=== PATIENT | female | born 1935 | race African-American/Black ===

== ENCOUNTER 2017-03-01 09:29 | Emergency (ER) | payer MEDICARE, MEDICAID ==
[~2017-03-01] VITALS: Ht 152.4 cm; Wt 54.0 kg
[2017-03-01] MEDS ORDERED: SIMV20TA6 PO (09:52)
[2017-03-01] MEDS ORDERED: DONE5TAB33 PO (09:52)
[2017-03-01] MEDS ORDERED: AMLO10TA80 PO (09:52)
[2017-03-01 13:08] VITALS: BP 159/82
== END 2017-03-01 14:11 | disposition home or self-care (01) ==
LOC: ER 12:40
DX: B34.9 Viral infection, unspecified (principal); I10 Essential (primary) hypertension; G30.9 Alzheimer's disease, unspecified; F02.80 Dementia in other diseases classified elsewhere, unspecified severity, without behavioral disturbance, psychotic disturbance, mood disturbance, and anxiety; E78.00 Pure hypercholesterolemia, unspecified; F17.200 Nicotine dependence, unspecified, uncomplicated
CPT/HCPCS: 71045; 87804; 99285

== ENCOUNTER 2020-10-29 20:30 | Inpatient (IN) | payer MEDICARE, MEDICAID ==
[~2020-10-29] VITALS: Ht 157.5 cm; Wt 46.7 kg
[~2020-10-29 20:30] MED LIST: AMLO10TA80 PO; DONE5TAB33 PO; SIMV-43 PO
[2020-10-29 22:49] LABS: CHLORIDE 106 mEq/L (98-107)
[2020-10-29 22:51] LABS: BASOPHILS % 0.3 % (0.0-2.0); EOSINOPHILS % 1.7 % (0.0-5.0); HEMATOCRIT. 37.9 % (36.0-48.0); HEMOGLOBIN. 12.9 g/dL (12.0-16.0); LYMPHOCYTES % 25.1 % (20.0-50.0); MEAN CORPUSCULAR HEMOGLOBIN 30.9 pg (28.0-32.0); MEAN CORPUSCULAR VOLUME 90.5 fL (81.0-99.0); MEAN PLATELET VOLUME 7.9 fl (7.4-10.4); MONOCYTES % 10.7 % (2.0-8.0); NEUTROPHILS % 62.2 % (40.0-76.0); PLATELET 208 x1000/uL (130-400); RED BLOOD CELL COUNT 4.19 mill/uL (4.2-5.4); RED CELL DISTRIBUTION WIDTH 13.6 % (11.6-14.6)
[2020-10-29] MEDS ORDERED: SODIUM CHLORIDE 0.9% 1,000 ML IV ONE (23:15)
[2020-10-29 23:34] LABS: CLARITY URINE CLOUDY (CLEAR); COLOR URINE YELLOW (YELLOW); KETONES URINE NEGATIVE (NEGATIVE); LEUKOCYTE ESTERASE URINE TRACE (NEGATIVE); NITRITE URINE POSITIVE (NEGATIVE); OCCULT BLOOD URINE TRACE (NEGATIVE); PROTEIN URINE NEGATIVE (NEGATIVE); SPECIFIC GRAVITY URINE 1.008 (1.005-1.030); UROBILINOGEN URINE 0.2 E.U./dL (0.2-1.0)
[2020-10-30] MEDS ORDERED: OLANZAPINE 10 MG/VIAL IM ONE
[2020-10-30] MEDS ORDERED: CEFTRIAXONE 1 G PREMIX 50 ML IV SCH ×2 (01:45→09:45)
[2020-10-30] MEDS: DONEPEZIL HCL 5MG TABLET PO SCH (12:09)
[2020-10-30 16:00] VITALS: BP 167/91
[2020-10-30] MEDS: ENOXAPARIN 30MG/0.3ML SYR SUBCUT SCH (16:38)
[2020-10-30] MEDS: AMLODIPINE 10MG TABLET PO SCH (16:38)
[2020-10-30 16:53] VITALS: BP 167/91
[2020-10-30 20:00] VITALS: BP 147/88
[2020-10-30] MEDS: CEFTRIAXONE 1,000 MG in DEXTROSE 5% WATER 50 ML IV SCH (22:14)
[2020-10-30] MEDS: LORAZEPAM 2MG/ML CPJ IV PRN (22:56)
[2020-10-31] VITALS (7 sets, daily range): BP systolic 98–188; BP diastolic 53–117
[2020-10-31 06:43] LABS: BASOPHILS % 0.2 % (0.0-2.0); EOSINOPHILS % 0.1 % (0.0-5.0); HEMATOCRIT. 41.2 % (36.0-48.0); HEMOGLOBIN. 13.6 g/dL (12.0-16.0); LYMPHOCYTES % 8.1 % (20.0-50.0); MEAN CORPUSCULAR HEMOGLOBIN 30.3 pg (28.0-32.0); MEAN CORPUSCULAR VOLUME 91.6 fL (81.0-99.0); MEAN PLATELET VOLUME 8.4 fl (7.4-10.4); NEUTROPHILS % 85.6 % (40.0-76.0); PLATELET 197 x1000/uL (130-400); RED CELL DISTRIBUTION WIDTH 13.5 % (11.6-14.6)
[2020-10-31 07:40] LABS: CHLORIDE 105 mEq/L (98-107)
[2020-10-31] MEDS: DONEPEZIL HCL 5MG TABLET PO SCH (09:41)
[2020-10-31] MEDS: AMLODIPINE 10MG TABLET PO SCH ×2 (09:41→09:43)
[2020-10-31] MEDS: ENOXAPARIN 30MG/0.3ML SYR SUBCUT SCH (17:20)
[2020-10-31] MEDS: CEFTRIAXONE 1,000 MG in DEXTROSE 5% WATER 50 ML IV SCH (21:44)
[2020-10-31] MEDS: LORAZEPAM 2MG/ML CPJ IV PRN (23:10)
[2020-11-01] VITALS (7 sets, daily range): BP systolic 95–156; BP diastolic 51–94
[2020-11-01] MEDS: DONEPEZIL HCL 5MG TABLET PO SCH (10:42)
[2020-11-01] MEDS: AMLODIPINE 10MG TABLET PO SCH (10:43)
[2020-11-01] MEDS: ENOXAPARIN 30MG/0.3ML SYR SUBCUT SCH (16:43)
[2020-11-01] MEDS: CEFTRIAXONE 1,000 MG in DEXTROSE 5% WATER 50 ML IV SCH (23:03)
[2020-11-02] VITALS: BP 130/81
[2020-11-02 04:00] VITALS: BP 115/73
[2020-11-02] MEDS ORDERED: ACETAMINOPHEN 650MG/20.3ML UDC PO PRN (06:00)
[2020-11-02 08:00] VITALS: BP 103/70
[2020-11-02] MEDS: DONEPEZIL HCL 5MG TABLET PO SCH (08:59)
[2020-11-02] MEDS: AMLODIPINE 10MG TABLET PO SCH (09:00)
[2020-11-02 12:06] VITALS: BP 105/51
[2020-11-02 16:36] VITALS: BP 127/80
[2020-11-02] MEDS: ENOXAPARIN 30MG/0.3ML SYR SUBCUT SCH (17:10)
[2020-11-02 20:30] VITALS: BP 105/63
[2020-11-02] MEDS: CEFTRIAXONE 1,000 MG in DEXTROSE 5% WATER 50 ML IV SCH (21:41)
[2020-11-03] VITALS: BP 109/60
[2020-11-03 04:30] VITALS: BP 110/62
[2020-11-03 08:16] VITALS: BP 119/94
[2020-11-03] MEDS ORDERED: AMLO2.5T45 PO (08:24)
[2020-11-03] MEDS: DONEPEZIL HCL 5MG TABLET PO SCH (08:31)
[2020-11-03] MEDS ORDERED: AMLODIPINE 2.5MG TABLET PO SCH (09:00)
[2020-11-03 09:38] VITALS: BP_SYST 119; BP_SYST 135; BP_DIAS 78; BP_DIAS 94
[2020-11-03] MEDS ORDERED: MAGNESIUM/ALUMINUM HYDROXIDE/SIMETHICONE 30ML UDC PO PRN (10:15)
[2020-11-03 12:00] VITALS: BP 135/78
== END 2020-11-03 15:45 | DRG 689 ==
LOC: ER 20:30 → MICUSO 10-30 01:37 → 6WST 10-30 14:27
PROVIDERS: ADMIT Urology; ATTEND Family Medicine Adult Medicine
DX: N39.0 Urinary tract infection, site not specified (principal); E43 Unspecified severe protein-calorie malnutrition; Z68.1 Body mass index [BMI] 19.9 or less, adult; I10 Essential (primary) hypertension; E78.5 Hyperlipidemia, unspecified; F03.90 Unspecified dementia, unspecified severity, without behavioral disturbance, psychotic disturbance, mood disturbance, and anxiety; Z20.822 Contact with and (suspected) exposure to COVID-19; E78.00 Pure hypercholesterolemia, unspecified; R62.7 Adult failure to thrive; Z79.899 Other long term (current) drug therapy; Z82.49 Family history of ischemic heart disease and other diseases of the circulatory system
CPT/HCPCS: 36415; 71045; 80048; 80053; 81003; 83605; 84484; 85025; 87426; 92610; 93005; 97162; 99285; J0696; J1650; J2060; J3490; J7030; J7040; J7060